=== PATIENT | female | born 1960 | race Caucasian/White ===

== ENCOUNTER 2018-01-31 19:25 | Emergency (ER) | payer BC, OTHER ==
[2018-01-31 19:44] VITALS: BP 132/82; PULSE 97; RESP 18; TEMP 100.5; O2SAT 97
== END 2018-01-31 21:41 | disposition left against medical advice (07) ==
LOC: NETRI 19:25
DX: Z53.21 Procedure and treatment not carried out due to patient leaving prior to being seen by health care provider (principal)
CPT/HCPCS: 99281